=== PATIENT | female | born 1990 | race Caucasian/White ===

== ENCOUNTER 2018-07-05 12:32 | Emergency (ER) | payer OTHER ==
[2018-07-05] MEDS ORDERED: HYDROcod/ACETAM 5/325 MG TABLET PO STA (13:12)
--- NOTE | 2018-07-05 13:14 | ED Physician Documentation ---
History of Present Illness - Stated complaint Stated Complaint: PX MED REFILL - Chief complaint Chief Complaint: Back Pain - Additonal information Additional information: 28-year-old female Who presents the emergency department requesting a refill of her [place]. The patient reports coming to the area to visit and she forgot her hydrocodone which she uses for chronic back pain. The patient has no acute medical complaints. The patient has no new or different injury and is here only requesting a refill Review of Systems Constitutional: denies: Fever Eyes: denies: Discharge : denies: Hematuria Skin: denies: Rash Musculoskeletal: reports: Back pain Neurologic: denies: Generalized weakness PD PAST MEDICAL HISTORY - Past Medical History Past Medical History: No - Past Surgical History Past Surgical History: No - Present Medications Home Medications: Ambulatory Orders Medication Instructions Recorded Confirmed Hydrocodone/Acetaminophen [[place] 1 tab ORAL QID PRN 07/05/18 07/05/18 10-325 Tablet] - Allergies Allergies/Adverse Reactions: Allergies Allergy/AdvReac Type Severity Reaction Status Date / Time ibuprofen AdvReac Cramps Verified 07/05/18 12:41 - Social History Does the pt smoke?: No Smoking Status: Never smoker Does the pt drink ETOH?: No Does the pt have substance abuse?: No - Immunizations Immunizations are current?: Yes - POLST Patient has POLST: No PD ED PE NORMAL - General General: Alert and oriented X 3, No acute distress - HEENT HEENT: Atraumatic - Neuro Neuro: Alert and oriented X 3, Normal speech - Psych Psych: Normal affect Results - Vitals Vitals: Vital Signs - 24 hr 07/05/18 07/05/18 12:37 13:19 Temperature 36.6 C Heart Rate 64 62 Respiratory 18 16 Rate Blood Pressure 113/67 114/68 O2 Saturation 100 100 Oxygen O2 Source Room air PD MEDICAL DECISION MAKING - ED course ED course: The patient is here requesting a refill of her hydrocodone. I explained to her that we do not refill narcotics out of the emergency department and that chronic pain and opiate pain management needs to come from one provider. I did address the patient's acute pain with 1 dose of hydrocodone in the emergency department and explained to her in depth why we would not be refilling ongoing narcotic pain management. The patient understands and agrees. The patient will return for any worsening or any concerns Departure - Departure Disposition: Home, Self Care Clinical Impression: Medication refill Instructions: Chronic Pain Comments: Please follow-up with your primary care for ongoing narcotic pain medications Please return for any worsening or any concerns
[2018-07-05 13:21] VITALS: BP 114/68
== END 2018-07-05 13:19 | disposition home or self-care (01) ==
LOC: ED 12:32
DX: Z76.0 Encounter for issue of repeat prescription (principal)
CPT/HCPCS: 99281; 99283; A9270